=== PATIENT | female | born 1970 | race African-American/Black ===

== ENCOUNTER 2016-10-05 14:54 | Emergency (ER) | payer OTHER ==
[~2016-10-05] VITALS: Ht 170.2 cm; Wt 72.6 kg
[~2016-10-05 14:54] MED LIST: CEPH-37 PO; DIPH25CA39 PO; NORPTMEDS CO; PRED-188 PO; TRAM50TA2 PO
[2016-10-05 20:41] VITALS: BP 104/67
[2016-10-05] MEDS ORDERED: FLUORESCEIN SOD 1 MG TEST STRIP RIGHTEYE ONE (20:45)
[2016-10-05] MEDS ORDERED: TETRACAINE HCL 0.5% OPTH(EYE) SOLN 4ML RIGHTEYE ONE (20:45)
== END 2016-10-05 21:49 | disposition home or self-care (01) ==
LOC: ER 14:54
DX: H10.9 Unspecified conjunctivitis (principal); L81.1 Chloasma

== ENCOUNTER 2017-10-18 23:15 | Emergency (ER) | payer SELFPAY ==
[~2017-10-18] VITALS: Ht 170.2 cm; Wt 79.8 kg
[2017-10-19 00:14] LABS: Urine Bacteria NONE SEEN /hpf (None Seen); Urine Blood 3+ /uL (Negative); Urine Mucus FEW (None Seen); Urine Specific Gravity 1.015 (1.001-1.035); Urine WBC 3 /hpf (0 - 5)
[2017-10-19 01:08] LABS: Hemoglobin 7.4 g/dL (12.2-16.2); Mean Corpuscular Hgb Conc. 29.7 g/dL (32.0-36.0); Platelet Count (auto) 154 10^3/uL (140-450); Red Blood Cells 4.35 10^6/uL (4.0-5.20)
[2017-10-19 01:09] LABS: INR 1.02 (0.9-1.15); Partial Thromboplastin Time 24.7 sec (22.64-33.71); Prothrombin Time 11.1 sec (9.37-12.3); Red Cell Distribution Width 20.4 % (11.8-14.3)
[2017-10-19 01:13] LABS: Hematocrit 24.8 % (36.0-46.0); Mean Corpuscular Hemoglobin 16.9 pg (28.0-32.0); White Blood Cell 5.5 10^3/uL (4.4-10.8)
[2017-10-19 01:16] LABS: Potassium 3.5 mmol/L (3.5-5.1)
[2017-10-19 01:17] LABS: Albumin 3.6 g/dL (3.4-5.0); BUN/Creatinine Ratio 9.9; Bilirubin, Total 0.8 mg/dL (0.2-1.0); Calcium 8.2 mg/dL (8.5-10.1); Total Protein 7.1 g/dL (6.4-8.2)
[2017-10-19 01:20] LABS: Band Neutrophils % (manual) 0; Basophils % (manual) 0 (0.0-2.0); Blast Cells 0; Metamyelocytes % 0; Myelocytes % 0; Promyelocytes % 0; Reactive Lymphocytes 0
[2017-10-19 01:53] LABS: Eosinophils % (manual) 3 (0-7); Lymphocytes % (manual) 27 (10.0-50.0); Monocytes % (manual) 5 (0-12)
[2017-10-19] MEDS ORDERED: medroxyPROGESTERone ACETATE 5 MG TAB PO ONE (07:30)
[2017-10-19] MEDS ORDERED: FERROUS SULFATE 300 MG/5 ML ORAL LIQ GT ONE (07:30)
[2017-10-19 08:07] VITALS: BP 133/71
== END 2017-10-19 07:22 | disposition home or self-care (01) ==
LOC: ER 23:20
DX: N92.0 Excessive and frequent menstruation with regular cycle (principal); Z79.899 Other long term (current) drug therapy
CPT/HCPCS: 36415; 80053; 81001; 81025; 85007; 85027; 85610; 85730; 86850; 86900; 86901

== ENCOUNTER 2019-05-28 19:08 | Emergency (ER) | payer MEDICAID, OTHER ==
[~2019-05-28] VITALS: Ht 170.2 cm; Wt 63.5 kg
[2019-05-28 19:20] VITALS: BP 129/75
== END 2019-05-28 20:51 | disposition left against medical advice (07) ==
LOC: ER 19:08
DX: S61.411A Laceration without foreign body of right hand, initial encounter (principal); Z53.21 Procedure and treatment not carried out due to patient leaving prior to being seen by health care provider; W26.9XXA Contact with unspecified sharp object(s), initial encounter; Y93.89 Activity, other specified; Y99.8 Other external cause status; Y92.89 Other specified places as the place of occurrence of the external cause